=== PATIENT | male | born 1990 | race Caucasian/White ===

== ENCOUNTER 2017-06-05 19:03 | Emergency (ER) | payer BC, OTHER ==
[2017-06-05] MEDS ORDERED: LORazepam 2 MG/ML MDV IVPUSH ONE (19:28)
[2017-06-05] MEDS ORDERED: Sodium Chloride 0.9% 10 ML Syringe FLUSH PRN ×2 (19:28→20:12)
[2017-06-05] MEDS ORDERED: Sodium Chloride 0.9% 1,000 ML IV ONE (19:30)
[2017-06-05] MEDS ORDERED: Enoxaparin 80 MG/0.8 ML Syringe SUBCUT ONE (19:33)
--- NOTE | 2017-06-05 19:56 | EDM.PDOC ---
ED HPI GENERAL MEDICAL PROBLEM - General Chief Complaint: Respiratory Problem Stated Complaint: SOB Time Seen by Provider: 06/05/17 19:17 Source of Information: Reports: Patient History Limitations: Reports: No Limitations - History of Present Illness INITIAL COMMENTS - FREE TEXT/NARRATIVE: 27-year-old male presents for evaluation and treatment of chest discomfort and shortness of breath. Patient reports that the shortness of breath and chest discomfort started around 17:30 or 18:00 this evening. He contacted his friend to come and be with him for monitoring. His friend was en route to his house he decided he needed to go to the ER. He denies any chest pain but reports and on sensation in his chest and has a difficult time describing it. Reports it comes in waves And travels up into his head. Reports tingling in his head. He is very anxious. He never had anything like this before. He feels lightheaded. No syncope, coughs, fevers, nausea or vomiting. Patient reports that he was watching and football when this occurred. He reports he did have about 8-10 beers last night. No alcohol today. He does chew tobacco. Patient reports that on Wednesday he arrived home from family vacation in [place]. He states he did have swelling in his bilateral feet which she attributed to his increase in salt intake and recent travel. He reports that the swelling has subsided significantly. 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) - Related Data Allergies Allergy/AdvReac Type Severity Reaction Status Date / Time No Known Allergies Allergy Verified 06/05/17 19:18 Home Meds: Home Meds LORazepam [Ativan] 0.5 mg PO Q8HR PRN #10 tablet 06/05/17 [Rx] Lisdexamfetamine Dimesylate [Vyvanse] 40 mg PO DAILY 06/05/17 [History] Past Medical History Psychiatric History: Reports: ADHD Social & Family History - Tobacco Use Smoking Status *Q: Current Every Day Smoker Years of Tobacco use: 9 Packs/Tins Daily: 0.3 - Caffeine Use Caffeine Use: Reports: Coffee - Recreational Drug Use Recreational Drug Use: No ED ROS GENERAL - Review of Systems Review Of Systems: See Below Constitutional: Reports: Malaise. Denies: Fever Respiratory: Reports: Shortness of Breath. Denies: Cough Cardiovascular: Reports: Chest Pain (discomfort) GI/Abdominal: Denies: Abdominal Pain, Nausea, Vomiting Neurological: Reports: Tingling (reports tingling in head). Denies: Headache, Syncope ED EXAM, GENERAL - Physical Exam Exam: See Below Exam Limited By: No Limitations General Appearance: Alert, WD/WN, Anxious, Moderate Distress Ears: Normal External Exam Nose: Normal Inspection Throat/Mouth: Normal Inspection, Normal Lips, Normal Voice, No Airway Compromise Neck: Normal Inspection Respiratory/Chest: No Respiratory Distress, Lungs Clear, Normal Breath Sounds Cardiovascular: Normal Peripheral Pulses, Regular Rate, Rhythm, No Murmur GI/Abdominal: Soft, Non-Tender Neurological: Alert, Oriented, Normal Cognition Psychiatric: Anxious Skin Exam: Warm, Dry, Normal Color EKG INTERPRETATION EKG Date: 06/05/17 Time: 19:20 Rhythm: Other (sinus tachycardia) Rate (Beats/Min): 107 [place]: Normal P-Wave: Present QRS: Normal ST-T: Normal QT: Normal EKG Interpretation Comments: sinus tachycardia at 107 bpm. No ischemic changes. Early transition. No LAD. No LVH. Reviewed by myself and Dr. Pulido. Course - Vital Signs Last Recorded V/S: Last Vital Signs Temp 36.1 C 06/05/17 19:09 Pulse 130 H 06/05/17 19:09 Resp 22 H 06/05/17 19:09 BP 167/106 H 06/05/17 19:09 Pulse Ox 100 06/05/17 19:09 - Orders/Labs/Meds Orders: Active Orders 24 hr Category Date Time Status Cardiac Monitoring [RC] . DIRECTED Care 06/05/17 19:28 Active EKG Documentation Completion [RC] ASDIRECTED Care 06/05/17 19:29 Active Peripheral IV Care [RC] . DIRECTED Care 06/05/17 19:29 Active Chest 2V [CR] Stat Exams 06/05/17 19:28 Taken PE Chest [Ang Chest] [CT] Stat Exams 06/05/17 19:45 Stop Req Sodium Chloride 0.9% [Saline Flush] Med 06/05/17 19:28 Active 10 ml FLUSH ASDIRECTED PRN Peripheral IV Insertion Adult [OM.PC] Routine Oth 06/05/17 19:28 Ordered EKG 12 Lead [EK] Stat Ther 01/13/18 19:28 Ordered Medication Orders Sodium Chloride (Saline Flush) 10 ml FLUSH ASDIRECTED PRN PRN Reason: Keep Vein Open Last Admin: 06/05/17 19:40 Dose: 10 ml Labs: Laboratory Tests 06/05/17 06/05/17 06/05/17 Range/Units 19:20 19:20 19:20 WBC 6.22 (4.23-9.07) K/mm3 RBC 5.30 (4.63-6.08) M/mm3 Hgb 16.6 (13.7-17.5) gm/L Hct 45.5 (40.1-51.0) % MCV 85.8 (79.0-92.2) fl MCH 31.3 (25.7-32.2) pg MCHC 36.5 H (32.2-35.5) g/dl RDW Std Deviation 39.3 (35.1-43.9) fL Plt Count 223 (163-337) K/mm3 MPV 10.4 (9.4-12.3) fl Neutrophils % (Manual) 51 (40-60) % Band Neutrophils % 1 (0-10) % Lymphocytes % (Manual) 29 (20-40) % Atypical Lymphs % 5 % Monocytes % (Manual) 14 H (2-10) % Eosinophils % (Manual) 0 L (0.8-7.0) % Basophils % (Manual) 0 L (0.2-1.2) Platelet Estimate Adequate RBC Morph Comment Normal PT (8.0-13.0) SECONDS INR APTT (22-36) SECONDS D-Dimer, Quantitative 0.22 (0.19-0.59) mg/L Sodium 139 (136-145) mEq/L Potassium 3.0 L (3.5-5.1) mEq/L Chloride 101 (98-107) mEq/L Carbon Dioxide 22 (21-32) mEq/L Anion Gap 19.0 H (5-15) BUN 9 (7-18) mg/dL Creatinine 1.1 (0.7-1.3) mg/dL Est Cr Clr Drug Dosing 97.59 mL/min Estimated GFR (MDRD) > 60 (>60) mL/min BUN/Creatinine Ratio 8.2 L (14-18) Glucose 126 H (74-106) mg/dL Calcium 9.2 (8.5-10.1) mg/dL Magnesium (1.8-2.4) mg/dl Total Bilirubin 0.7 (0.2-1.0) mg/dL AST 34 (15-37) U/L ALT 107 H (16-63) U/L Alkaline Phosphatase 102 (46-116) U/L Troponin I < 0.017 (0.00-0.056) ng/mL Total Protein 7.6 (6.4-8.2) g/dl Albumin 4.4 (3.4-5.0) g/dl Globulin 3.2 gm/dL Albumin/Globulin Ratio 1.4 (1-2) Lipase 119 (73-393) U/L Urine Color (Yellow) Urine Appearance (Clear) Urine pH (5.0-8.0) Ur Specific [place] (1.005-1.030) Urine Protein (Negative) Urine Glucose (UA) (Negative) Urine Ketones (Negative) Urine Occult Blood (Negative) Urine Nitrite (Negative) Urine Bilirubin (Negative) Urine Urobilinogen (0.2-1.0) Ur Leukocyte Esterase (Negative) Urine RBC (0-5) /hpf Urine WBC (0-5) /hpf Ur Epithelial Cells (0-5) /hpf Urine Bacteria (FEW) /hpf Urine Mucus (FEW) /hpf Urine Opiates Screen (NEGATIVE) Ur Buprenorphine Scrn (NEGATIVE) Ur Oxycodone Screen (NEGATIVE) Urine Methadone Screen (NEGATIVE) Ur Propoxyphene Screen (NEGATIVE) Ur Barbiturates Screen (NEGATIVE) Ur Tricyclics Screen (NEGATIVE) Ur Phencyclidine Scrn (NEGATIVE) Ur Amphetamine Screen (NEGATIVE) U Methamphetamines Scrn (NEGATIVE) U Benzodiazepines Scrn (NEGATIVE) U Cocaine Metab Screen (NEGATIVE) U Marijuana (THC) Screen (NEGATIVE) Ethyl Alcohol 0.00 (0.00) gm% 06/05/17 06/05/17 06/05/17 Range/Units 19:20 19:20 20:35 WBC (4.23-9.07) K/mm3 RBC (4.63-6.08) M/mm3 Hgb (13.7-17.5) gm/L Hct (40.1-51.0) % MCV (79.0-92.2) fl MCH (25.7-32.2) pg MCHC (32.2-35.5) g/dl RDW Std Deviation (35.1-43.9) fL Plt Count (163-337) K/mm3 MPV (9.4-12.3) fl Neutrophils % (Manual) (40-60) % Band Neutrophils % (0-10) % Lymphocytes % (Manual) (20-40) % Atypical Lymphs % % Monocytes % (Manual) (2-10) % Eosinophils % (Manual) (0.8-7.0) % Basophils % (Manual) (0.2-1.2) Platelet Estimate RBC Morph Comment PT 10.4 (8.0-13.0) SECONDS INR 0.96 APTT 23 (22-36) SECONDS D-Dimer, Quantitative (0.19-0.59) mg/L Sodium (136-145) mEq/L Potassium (3.5-5.1) mEq/L Chloride (98-107) mEq/L Carbon Dioxide (21-32) mEq/L Anion Gap (5-15) BUN (7-18) mg/dL Creatinine (0.7-1.3) mg/dL Est Cr Clr Drug Dosing mL/min Estimated GFR (MDRD) (>60) mL/min BUN/Creatinine Ratio (14-18) Glucose (74-106) mg/dL Calcium (8.5-10.1) mg/dL Magnesium 1.9 (1.8-2.4) mg/dl Total Bilirubin (0.2-1.0) mg/dL AST (15-37) U/L ALT (16-63) U/L Alkaline Phosphatase (46-116) U/L Troponin I (0.00-0.056) ng/mL Total Protein (6.4-8.2) g/dl Albumin (3.4-5.0) g/dl Globulin gm/dL Albumin/Globulin Ratio (1-2) Lipase (73-393) U/L Urine Color Yellow (Yellow) Urine Appearance Clear (Clear) Urine pH 7.0 (5.0-8.0) Ur Specific [place] 1.015 (1.005-1.030) Urine Protein Negative (Negative) Urine Glucose (UA) Negative (Negative) Urine Ketones Negative (Negative) Urine Occult Blood Negative (Negative) Urine Nitrite Negative (Negative) Urine Bilirubin Negative (Negative) Urine Urobilinogen 0.2 (0.2-1.0) Ur Leukocyte Esterase Negative (Negative) Urine RBC 0-5 (0-5) /hpf Urine WBC 0-5 (0-5) /hpf Ur Epithelial Cells 0-5 (0-5) /hpf Urine Bacteria Occasional (FEW) /hpf Urine Mucus Not seen (FEW) /hpf Urine Opiates Screen (NEGATIVE) Ur Buprenorphine Scrn (NEGATIVE) Ur Oxycodone Screen (NEGATIVE) Urine Methadone Screen (NEGATIVE) Ur Propoxyphene Screen (NEGATIVE) Ur Barbiturates Screen (NEGATIVE) Ur Tricyclics Screen (NEGATIVE) Ur Phencyclidine Scrn (NEGATIVE) Ur Amphetamine Screen (NEGATIVE) U Methamphetamines Scrn (NEGATIVE) U Benzodiazepines Scrn (NEGATIVE) U Cocaine Metab Screen (NEGATIVE) U Marijuana (THC) Screen (NEGATIVE) Ethyl Alcohol (0.00) gm% 06/05/17 Range/Units 20:35 WBC (4.23-9.07) K/mm3 RBC (4.63-6.08) M/mm3 Hgb (13.7-17.5) gm/L Hct (40.1-51.0) % MCV (79.0-92.2) fl MCH (25.7-32.2) pg MCHC (32.2-35.5) g/dl RDW Std Deviation (35.1-43.9) fL Plt Count (163-337) K/mm3 MPV (9.4-12.3) fl Neutrophils % (Manual) (40-60) % Band Neutrophils % (0-10) % Lymphocytes % (Manual) (20-40) % Atypical Lymphs % % Monocytes % (Manual) (2-10) % Eosinophils % (Manual) (0.8-7.0) % Basophils % (Manual) (0.2-1.2) Platelet Estimate RBC Morph Comment PT (8.0-13.0) SECONDS INR APTT (22-36) SECONDS D-Dimer, Quantitative (0.19-0.59) mg/L Sodium (136-145) mEq/L Potassium (3.5-5.1) mEq/L Chloride (98-107) mEq/L Carbon Dioxide (21-32) mEq/L Anion Gap (5-15) BUN (7-18) mg/dL Creatinine (0.7-1.3) mg/dL Est Cr Clr Drug Dosing mL/min Estimated GFR (MDRD) (>60) mL/min BUN/Creatinine Ratio (14-18) Glucose (74-106) mg/dL Calcium (8.5-10.1) mg/dL Magnesium (1.8-2.4) mg/dl Total Bilirubin (0.2-1.0) mg/dL AST (15-37) U/L ALT (16-63) U/L Alkaline Phosphatase (46-116) U/L Troponin I (0.00-0.056) ng/mL Total Protein (6.4-8.2) g/dl Albumin (3.4-5.0) g/dl Globulin gm/dL Albumin/Globulin Ratio (1-2) Lipase (73-393) U/L Urine Color (Yellow) Urine Appearance (Clear) Urine pH (5.0-8.0) Ur Specific [place] (1.005-1.030) Urine Protein (Negative) Urine Glucose (UA) (Negative) Urine Ketones (Negative) Urine Occult Blood (Negative) Urine Nitrite (Negative) Urine Bilirubin (Negative) Urine Urobilinogen (0.2-1.0) Ur Leukocyte Esterase (Negative) Urine RBC (0-5) /hpf Urine WBC (0-5) /hpf Ur Epithelial Cells (0-5) /hpf Urine Bacteria (FEW) /hpf Urine Mucus (FEW) /hpf Urine Opiates Screen Negative (NEGATIVE) Ur Buprenorphine Scrn Negative (NEGATIVE) Ur Oxycodone Screen Negative (NEGATIVE) Urine Methadone Screen Negative (NEGATIVE) Ur Propoxyphene Screen Negative (NEGATIVE) Ur Barbiturates Screen Negative (NEGATIVE) Ur Tricyclics Screen Negative (NEGATIVE) Ur Phencyclidine Scrn Negative (NEGATIVE) Ur Amphetamine Screen Presumptive positive H (NEGATIVE) U Methamphetamines Scrn Negative (NEGATIVE) U Benzodiazepines Scrn Negative (NEGATIVE) U Cocaine Metab Screen Negative (NEGATIVE) U Marijuana (THC) Screen Negative (NEGATIVE) Ethyl Alcohol (0.00) gm% Meds: Medications Generic Name Dose Route Start Last Admin Trade Name Freq PRN Reason Stop Dose Admin Sodium Chloride 10 ml 06/05/17 19:28 06/05/17 19:40 Saline Flush FLUSH 10 ml ASDIRECTED PRN Administration Keep Vein Open Discontinued Medications Generic Name Dose Route Start Last Admin Trade Name Freq PRN Reason Stop Dose Admin Enoxaparin Sodium 90 mg 06/05/17 19:33 Lovenox SUBCUT 06/05/17 19:34 ONETIME ONE Sodium Chloride 1,000 mls @ 999 mls/hr 06/05/17 19:30 06/05/17 19:37 Normal Saline IV 06/05/17 20:30 125 mls/hr ONETIME ONE Administration Sodium Chloride 100 mls @ 75 mls/hr 06/05/17 20:15 Normal Saline IV ASDIRECTED AVIS Iopamidol 50 ml 06/05/17 20:12 Isovue-370 (76%) IVPUSH 06/05/17 20:13 ONETIME ONE Iopamidol 100 ml 06/05/17 20:12 Isovue-370 (76%) IVPUSH 06/05/17 20:13 ONETIME ONE Lorazepam 1 mg 06/05/17 19:28 06/05/17 19:33 Ativan IVPUSH 06/05/17 19:29 1 mg ONETIME ONE Administration Potassium Chloride 20 meq 06/05/17 20:23 06/05/17 21:14 Klor-Con M20 PO 06/05/17 20:24 20 meq ONETIME ONE Administration Sodium Chloride 10 ml 06/05/17 20:12 Saline Flush FLUSH ONETIME PRN IV FLUSH - Radiology Interpretation Free Text/Narrative:: chest xray reviewed by myself and Dr. Pulido shows no acute intrathoracic process. Head CT without contrast impression per Dr. Caicedo: Nothing acute is seen on noncontrast head CT study. - Re-Assessments/Exams Free Text/Narrative Re-Assessment/Exam: 06/05/17 20:07 Case with discussed with Dr. Pulido, recommended giving lovenox 1mg/kg subQ while working patient up for PE. I ordered this. 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 He denies any current headaches. He has no sequale from the subdural. He is anxious about receiving the lovenox at this time without a definitive diagnosis. He would like to wait until we have a definitive diagnosis before receiving the lovenox. Head Ct and PE study were ordered. 06/05/17 20:22 D-dimer returned unremarkable at 0.22. CT PE study canceled. 06/05/17 21:30 Patient's symptoms have significantly improved since receiving the 1 mg Ativan. His heart rate has been in the 70s to 80s. I asked nursing staff to increase his fluids and bolus the liter in. I reviewed the head CT, chest x-ray, EKG and lab results with the patient. I feel his symptoms center lately from a combination of being dehydrated, possibly from drinking alcohol last night, and anxiety. Plan will be to give him the remainder of this fluid bolus at discharge home. 06/05/17 21:41 Patient reports that he is feeling greatly improved. He states that he feels "80 -90%" better. I will discharge him home. Will be given a prescription for Ativan. Encouraged to drink plenty of fluids. Encouraged to increase his potassium intake. given that he is a young healthy male and his kidney function looks great he will likely return to normal potassium level in the next few days without further intervention. Discharge instructions as documented. Departure - Departure Time of Disposition: 21:43 Disposition: Home, Self-Care 01 Condition: Good Clinical Impression: Dehydration, Anxiety, Hypokalemia - Discharge Information Prescriptions: LORazepam [Ativan] 0.5 mg PO Q8HR PRN #10 tablet PRN Reason: Anxiety Referrals: Doug Zhu Jr, MD [Primary Care Provider] - Forms: ED Department Discharge Additional Instructions: Ativan 1 tab every 8 hours as needed for anxiety. This medication may make you drowsy. Do not drive or operate machinery within 8 hours of taking this medication. Do not drive or operate machinery tonight as you were given Ativan here in the ER. Follow-up with Dr. Zhu this week as planned. make sure you are drinking plenty of fluids. Recommend drinking water, Gatorade or Powerade. Please return to the ER if your symptoms change or worsen. - My Orders Last 24 Hours: My Active Orders 06/05/17 19:28 Cardiac Monitoring [RC] . DIRECTED Chest 2V [CR] Stat Sodium Chloride 0.9% [Saline Flush] 10 ml FLUSH ASDIRECTED PRN Peripheral IV Insertion Adult [OM.PC] Routine EKG 12 Lead [EK] Stat 06/05/17 19:29 EKG Documentation Completion [RC] ASDIRECTED Peripheral IV Care [RC] . DIRECTED 06/05/17 19:45 PE Chest [Ang Chest] [CT] Stat - Assessment/Plan Last 24 Hours: My Active Orders 06/05/17 19:28 Cardiac Monitoring [RC] . DIRECTED Chest 2V [CR] Stat Sodium Chloride 0.9% [Saline Flush] 10 ml FLUSH ASDIRECTED PRN Peripheral IV Insertion Adult [OM.PC] Routine EKG 12 Lead [EK] Stat 06/05/17 19:29 EKG Documentation Completion [RC] ASDIRECTED Peripheral IV Care [RC] . DIRECTED 06/05/17 19:45 PE Chest [Ang Chest] [CT] Stat
[2017-06-05] MEDS ORDERED: Iopamidol 755 Mg/ML 100 ML Bottle IVPUSH ONE (20:12)
[2017-06-05] MEDS ORDERED: Iopamidol 755 MG/ML 50 ML Bottle IVPUSH ONE (20:12)
[2017-06-05] MEDS ORDERED: Sodium Chloride 0.9% 100 ML IV SCH (20:15)
[2017-06-05] MEDS ORDERED: Potassium Chloride 20 MEQ Tab.ER PO ONE (20:23)
--- NOTE | 2017-06-05 20:47 | CT ---
Head CT Technique: Multiple axial sections through the brain were obtained. Intravenous contrast was not utilized. Comparison: No previous intracranial imaging. Findings: Ventricles along with basal cisterns and sulci over the convexities are within normal limits for the patient's age. No abnormal parenchymal densities are seen. No evidence of intracranial hemorrhage. No midline shift or mass effect is seen. Bone window settings were reviewed which shows the visualized sinuses to appear clear. No acute calvarial abnormality is identified. Impression: 1. Nothing acute is seen on noncontrast head CT study. Diagnostic code #1
--- NOTE | 2017-06-06 12:22 | CR ---
Chest: Two views of the chest were obtained. Comparison: No prior chest x-ray. Heart size and mediastinum are normal. Lungs are clear. Bony structures are unremarkable. Impression: 1. Nothing acute is identified on two-view chest x-ray. Diagnostic code #1
== END 2017-06-05 21:56 | disposition home or self-care (01) ==
LOC: SUPCPDRO 19:03 → JD.ED 19:03
DX: E86.0 Dehydration (principal); F41.9 Anxiety disorder, unspecified; E87.6 Hypokalemia; F17.210 Nicotine dependence, cigarettes, uncomplicated; F90.9 Attention-deficit hyperactivity disorder, unspecified type; Z79.899 Other long term (current) drug therapy
CPT/HCPCS: 36415; 70450; 71046; 80053; 80306; 81001; 83690; 83735; 84484; 85025; 85379; 85610; 85730; 93005; 96361; 96374; 99285; A9270; G0480; J2060; J7040; J7050; 93010; 99284

== ENCOUNTER 2017-07-09 01:47 | Emergency (ER) | payer BC ==
--- NOTE | 2017-07-09 04:16 | EDM.PDOC ---
ED HPI GENERAL MEDICAL PROBLEM - General Chief Complaint: General Stated Complaint: PANIC ATTACK Time Seen by Provider: 07/09/17 04:05 Source of Information: Reports: Patient, Old Records History Limitations: Reports: No Limitations - History of Present Illness INITIAL COMMENTS - FREE TEXT/NARRATIVE: The patient states that he was going to bed around 21:00 or 22:00, when he developed symptoms of a racing heart, chest discomfort, shortness of breath, and the sensation of walking on rubber legs. He denies having tingling or numbness, abdominal pain, or nausea. He states that he was unable to sleep, therefore came to the ED. He believes that his symptoms are due to a panic attack. Here in the ED, the patient's oxygen saturation was found to be 100% on room air. His symptoms subsequently resolved around 02:30, here in the ED. The patient was seen in this ED on 06/05/2017 for similar symptoms. At the time, his oxygen saturation was also 100% on room air. Thorough workup at that time was negative, and the patient was diagnosed with anxiety. He was discharged home with a prescription for 10 tablets of Ativan 0.5 mg, however, the patient states that he did not fill that prescription, because he did not have any further symptoms, until tonight. He states that he did, however, follow-up with his PCP, Dr. Zhu, shortly after that the visit. They discussed possible treatment options for anxiety, but elected against prescribing any, as the patient had only had the one episode. Chest Pain Score (Numeric/FACES): 2 - Related Data Allergies Allergy/AdvReac Type Severity Reaction Status Date / Time No Known Allergies Allergy Verified 07/09/17 02:01 Home Meds: Home Meds LORazepam [Ativan] 0.5 mg PO Q8HR PRN #10 tablet 06/05/17 [Rx] Past Medical History Neurological History: Reports: Brain Injury ([facility] 2016) - Past Surgical History Musculoskeletal Surgical History: Reports: Other (See Below) (Left hand tendon repair) Social & Family History - Tobacco Use Smoking Status *Q: Never Smoker Tobacco Use Within Last Twelve Months: Snuff/Dip (Chews 1.5 cans/week) - Caffeine Use Caffeine Use: Reports: None - Alcohol Use Alcohol Use History: Yes Alcohol Use Frequency: Socially - Recreational Drug Use Recreational Drug Use: Yes - Living Situation & Occupation Living situation: Reports: Single, Alone 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 ED EXAM, GENERAL - Physical Exam Exam: See Below Exam Limited By: No Limitations General Appearance: Alert, WD/WN, No Apparent Distress Eye Exam: Bilateral Eye: Normal Inspection Ears: Normal External Exam, Hearing Grossly Normal Nose: Normal Inspection, No Blood Throat/Mouth: Normal Inspection, Normal Lips, Normal Voice, No Airway Compromise Head: Atraumatic, Normocephalic Neck: Normal Inspection, Full Range of Motion Respiratory/Chest: No Respiratory Distress, Lungs Clear, Normal Breath Sounds, No Accessory Muscle Use Cardiovascular: Normal Peripheral Pulses, Regular Rate, Rhythm, No Gallop, No JVD, No Murmur, No Rub Peripheral Pulses: 4+: Radial (L), Radial (R) GI/Abdominal: Normal Bowel Sounds, Soft, Non-Tender, No Organomegaly, No Distention, No Abnormal Bruit, No Mass (Male) Exam: Deferred Rectal (Males) Exam: Deferred Back Exam: Normal Inspection, Full Range of Motion, NT Extremities: Normal Inspection, Normal Range of Motion, No Pedal Edema, Normal Capillary Refill Neurological: Alert, Oriented, Normal Cognition, No Motor/Sensory Deficits Psychiatric: Normal Affect Skin Exam: Warm, Dry, Intact, Normal Color, No Rash Course - Vital Signs Last Recorded V/S: Last Vital Signs Temp 36.7 C 07/09/17 01:56 Pulse 70 07/09/17 01:56 Resp 18 07/09/17 01:56 BP 126/77 07/09/17 01:56 Pulse Ox 100 07/09/17 01:56 - Re-Assessments/Exams Free Text/Narrative Re-Assessment/Exam: 07/09/17 04:15 At present, the patient is completely asymptomatic. His presentation is very similar to when he was seen in this ED on 06/05/2017, at which time an exhaustive workup was negative, and he was diagnosed with anxiety. We discussed the option of repeating a workup tonight, however, the patient is aware that his symptoms are likely due to a panic attack, and he therefore declined a repeat workup tonight. I am recommending that if his symptoms recur frequently, that he follow-up with his PCP, Dr. Doug Zhu, to discuss treatment options for anxiety. Departure - Departure Time of Disposition: 04:21 Disposition: Home, Self-Care 01 Condition: Good Clinical Impression: Panic attack - Discharge Information Instructions: Panic Attacks, [id number] Referrals: Doug Zhu Jr, MD [Primary Care Provider] - Forms: ED Department Discharge Additional Instructions: You were seen in the emergency room for the feeling of a racing heart, chest discomfort, shortness of breath, and the sensation of walking on rubber legs. Your symptoms resolved in the ER. A workup was offered, but declined. Your symptoms are MOST LIKELY due to a panic attack. As discussed, no harm will come to you from a panic attack, however, if they occur frequently enough, they can impair the quality of your life. If your symptoms recur, please follow-up with your PCP, Dr. Doug Zhu, to discuss treatment options for anxiety. If any other problems, please do not hesitate to return to the ER.
== END 2017-07-09 04:35 | disposition home or self-care (01) ==
LOC: JD.ED 01:47
DX: F41.0 Panic disorder [episodic paroxysmal anxiety] (principal); F17.290 Nicotine dependence, other tobacco product, uncomplicated
CPT/HCPCS: 99283

== ENCOUNTER 2017-08-11 11:23 | Emergency (ER) | payer BC ==
--- NOTE | 2017-08-11 14:29 | EDM.PDOC ---
ED HPI GENERAL MEDICAL PROBLEM - General Chief Complaint: Chest Pain Stated Complaint: CHEST PAIN X 3 DAYS Time Seen by Provider: 08/11/17 11:39 Source of Information: Reports: Patient History Limitations: Reports: No Limitations - History of Present Illness INITIAL COMMENTS - FREE TEXT/NARRATIVE: The patient presents with left sided chest pain and palpitations. He says it feels like his heart is pounding. This is worse at night. This has been going on for 4 days. He has no shortness of breath, fever, chills, cough, congestion , runny nose, abdominal pain, nausea or vomiting. He had this happen once before. It was attributed to anxiety. He has no medical problems. Onset: Gradual Duration: Day(s): (4) Location: Reports: Chest Quality: Reports: Pressure Severity: Moderate Improves with: Reports: None Worsens with: Reports: None Associated Symptoms: Reports: Chest Pain. Denies: Cough, Fever/Chills, Nausea/ Vomiting, Shortness of Breath Left Chest Pain Score (Numeric/FACES): 5 - Related Data Allergies Allergy/AdvReac Type Severity Reaction Status Date / Time No Known Allergies Allergy Verified 08/11/17 11:36 Home Meds: Home Meds LORazepam [Ativan] 0.5 mg PO Q8HR PRN #10 tablet 06/05/17 [Rx] Past Medical History Neurological History: Reports: Brain Injury Psychiatric History: Reports: ADHD, Anxiety - Past Surgical History Musculoskeletal Surgical History: Reports: Other (See Below) Social & Family History - Tobacco Use Smoking Status *Q: Never Smoker Years of Tobacco use: 9 Packs/Tins Daily: 0.3 Second Hand Smoke Exposure: No - Caffeine Use Caffeine Use: Reports: None - Recreational Drug Use Recreational Drug Use: No - Living Situation & Occupation Living situation: Reports: Single, Alone 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) ED ROS GENERAL - Review of Systems Review Of Systems: See Below Constitutional: Reports: No Symptoms HEENT: Reports: No Symptoms Respiratory: Reports: No Symptoms Cardiovascular: Reports: Chest Pain, Palpitations Endocrine: Reports: No Symptoms GI/Abdominal: Reports: No Symptoms : Reports: No Symptoms ED EXAM, GENERAL - Physical Exam Exam: See Below Exam Limited By: No Limitations General Appearance: Alert, No Apparent Distress Ears: Normal External Exam Nose: Normal Inspection Throat/Mouth: Normal Inspection Head: Atraumatic, Normocephalic Neck: Normal Inspection Respiratory/Chest: No Respiratory Distress, Lungs Clear, Normal Breath Sounds Cardiovascular: Regular Rate, Rhythm, No Edema, No Murmur GI/Abdominal: Soft, Non-Tender, No Organomegaly, No Mass Back Exam: Normal Inspection Extremities: Normal Inspection Neurological: Alert, Oriented, No Motor/Sensory Deficits EKG INTERPRETATION EKG Date: 08/11/17 Time: 12:24 Rhythm: NSR Rate (Beats/Min): 65 [place]: Normal P-Wave: Present QRS: Normal ST-T: Elevated (Normal early repol) QT: Normal Course - Vital Signs Last Recorded V/S: Last Vital Signs Temp 98.3 F 08/11/17 11:33 Pulse 68 08/11/17 11:33 Resp 18 08/11/17 11:33 BP 144/85 H 08/11/17 11:33 Pulse Ox 98 08/11/17 11:33 - Orders/Labs/Meds Orders: Active Orders 24 hr Category Date Time Status Cardiac Monitoring [RC] . DIRECTED Care 08/11/17 12:13 Active EKG Documentation Completion [RC] STAT Care 08/11/17 12:13 Active Chest 1V Frontal [CR] Stat Exams 08/11/17 12:13 Taken Labs: Laboratory Tests 08/11/17 08/11/17 08/11/17 Range/Units 12:30 12:30 12:30 WBC 3.55 L (4.23-9.07) K/mm3 RBC 5.32 (4.63-6.08) M/mm3 Hgb 16.4 (13.7-17.5) gm/L Hct 46.6 (40.1-51.0) % MCV 87.6 (79.0-92.2) fl MCH 30.8 (25.7-32.2) pg MCHC 35.2 (32.2-35.5) g/dl RDW Std Deviation 38.4 (35.1-43.9) fL Plt Count 183 (163-337) K/mm3 MPV 10.6 (9.4-12.3) fl Neut % (Auto) 56.4 (34.0-67.9) % Lymph % (Auto) 25.6 (21.8-53.1) % Archuleta % (Auto) 15.2 H (5.3-12.2) % Eos % (Auto) 1.7 (0.8-7.0) Baso % (Auto) 0.8 (0.1-1.2) % Neut # (Auto) 2.00 (1.78-5.38) K/mm3 Lymph # (Auto) 0.91 L (1.32-3.57) K/mm3 Archuleta # (Auto) 0.54 (0.30-0.82) K/mm3 Eos # (Auto) 0.06 (0.04-0.54) K/mm3 Baso # (Auto) 0.03 (0.01-0.08) K/mm3 Manual Slide Review Normal smear D-Dimer, Quantitative < 0.19 L (0.19-0.59) mg/L Sodium 139 (136-145) mEq/L Potassium 3.9 (3.5-5.1) mEq/L Chloride 103 (98-107) mEq/L Carbon Dioxide 26 (21-32) mEq/L Anion Gap 13.9 (5-15) BUN 15 (7-18) mg/dL Creatinine 0.9 (0.7-1.3) mg/dL Est Cr Clr Drug Dosing 119.28 mL/min Estimated GFR (MDRD) > 60 (>60) mL/min BUN/Creatinine Ratio 16.7 (14-18) Glucose 92 (74-106) mg/dL Calcium 8.9 (8.5-10.1) mg/dL Total Bilirubin 0.7 (0.2-1.0) mg/dL AST 36 (15-37) U/L ALT 67 H (16-63) U/L Alkaline Phosphatase 81 (46-116) U/L Troponin I < 0.017 (0.00-0.056) ng/mL Total Protein 6.8 (6.4-8.2) g/dl Albumin 4.1 (3.4-5.0) g/dl Globulin 2.7 gm/dL Albumin/Globulin Ratio 1.5 (1-2) TSH 3rd Generation 1.413 (0.358-3.74) uIU/mL - Re-Assessments/Exams Free Text/Narrative Re-Assessment/Exam: 08/11/17 14:27 I ordered an EKG, CXR, and labs. His EKG shows a NSR with no acute changes. His CXR looks good. His CBC and CMP look good. His troponin is negative. His TSH is normal and his D-dimer was negative. I will give him a holter monitor and discharge him home with follow up. Departure - Departure Time of Disposition: 14:30 Disposition: Home, Self-Care 01 Condition: Good Clinical Impression: Palpitations Chest pain Qualifiers: Chest pain type: unspecified Qualified Code(s): R07.9 - Chest pain, unspecified Referrals: Doug Zhu Jr, MD [Primary Care Provider] - 1 Week Additional Instructions: Wear the holter monitor for 2 days. Follow up with Dr Zhu in 1 week. Please return if you are worse. - My Orders Last 24 Hours: My Active Orders 08/11/17 12:13 Cardiac Monitoring [RC] . DIRECTED EKG Documentation Completion [RC] STAT Chest 1V Frontal [CR] Stat - Assessment/Plan Last 24 Hours: My Active Orders 08/11/17 12:13 Cardiac Monitoring [RC] . DIRECTED EKG Documentation Completion [RC] STAT Chest 1V Frontal [CR] Stat
--- NOTE | 2017-08-12 07:07 | CR ---
Chest: Portable view of the chest was obtained. Comparison: Prior chest x-ray of 06/05/17. Heart size and mediastinum are normal. Lungs are clear. Bony structures are grossly intact. Impression: 1. Nothing acute is identified on portable chest x-ray. Diagnostic code #1
== END 2017-08-11 15:00 | disposition home or self-care (01) ==
LOC: JD.ED 11:23
DX: R00.2 Palpitations (principal); R07.9 Chest pain, unspecified
CPT/HCPCS: 36415; 71045; 71045-26; 80053; 84443; 84484; 85025; 85379; 93005; 93010; 93225; 93226; 99284-25; 99285-25

== ENCOUNTER 2019-02-06 09:52 | Emergency (ER) | payer BC ==
--- NOTE | 2019-02-06 10:28 | EDM.PDOC ---
ED HPI GENERAL MEDICAL PROBLEM - General Chief Complaint: Laceration Stated Complaint: L INDEX FINGER LAC Time Seen by Provider: 02/06/19 10:10 Source of Information: Reports: Patient, RN Notes Reviewed - History of Present Illness INITIAL COMMENTS - FREE TEXT/NARRATIVE: avulsed distal tip of finger off last evening from some type of surface grinder. Started bleeding again this morning. No other area of injury. Believes he is UTD with tetanus. - Related Data Allergies Allergy/AdvReac Type Severity Reaction Status Date / Time No Known Allergies Allergy Verified 02/06/19 10:03 Home Meds: Home Meds . [No Known Home Meds] 02/06/19 [History] Past Medical History Neurological History: Reports: Brain Injury Psychiatric History: Reports: ADHD, Anxiety - Past Surgical History Musculoskeletal Surgical History: Reports: Other (See Below) Other Musculoskeletal Surgeries/Procedures:: thumb Social & Family History - Tobacco Use Smoking Status *Q: Never Smoker - Caffeine Use Caffeine Use: Reports: Coffee - Recreational Drug Use Recreational Drug Use: No - Living Situation & Occupation Living situation: Reports: Single, Alone Occupation: Employed ([employer]) ED ROS GENERAL - Review of Systems Review Of Systems: See Below Constitutional: Reports: No Symptoms HEENT: Reports: No Symptoms Respiratory: Reports: No Symptoms Cardiovascular: Reports: No Symptoms GI/Abdominal: Denies: Nausea, Vomiting Musculoskeletal: Reports: Other (has avulsed the distal volar pad of L index finger completely off. ) Skin: Reports: Other (no other area of injury) Neurological: Denies: Numbness, Tingling, Weakness ED EXAM, SKIN/RASH Exam: See Below General Appearance: Alert, No Apparent Distress Head: Atraumatic Neck: Supple Respiratory/Chest: No Respiratory Distress Extremities: Other (about 1/2 by 1/2 cm avulsion if skin distal L index finger, no other area of injury, no bony tenderness, no visual deformity) Neurological: No Motor/Sensory Deficits Skin: Warm, Dry, Normal Color Course - Vital Signs Last Recorded V/S: Last Vital Signs Temp 98.1 F 02/06/19 10:01 Pulse 61 02/06/19 10:01 Resp 16 02/06/19 10:01 BP 120/77 02/06/19 10:01 Pulse Ox 95 02/06/19 10:01 - Re-Assessments/Exams Free Text/Narrative Re-Assessment/Exam: 02/07/19 10:20 protective dressing applied, nothing to suture Departure - Departure Time of Disposition: 10:26 Disposition: Home, Self-Care 01 Condition: Fair Clinical Impression: Avulsion of finger tip Qualifiers: Encounter type: initial encounter Qualified Code(s): S61.209A - Unspecified open wound of unspecified finger without damage to nail, initial encounter - Discharge Information Instructions: Avulsion Fracture of the Hand Referrals: PCP,None [Primary Care Provider] - Forms: ED Department Discharge Additional Instructions: Leave pressure dressing on for 2 days, then change dressing once or twice daily until the new skin tissue has a chance to heal over, keep this as dry and clean as possible. Tylenol every 6 hours if needed for discomfort.
== END 2019-02-06 10:40 | disposition home or self-care (01) ==
LOC: JD.ED 09:52
DX: S61.201A Unspecified open wound of left index finger without damage to nail, initial encounter (principal); W31.9XXA Contact with unspecified machinery, initial encounter
CPT/HCPCS: 99283